=== PATIENT | female | born 1970 | race Caucasian/White ===

== ENCOUNTER 2020-07-08 12:33 | Emergency (ER) | payer OTHER ==
[~2020-07-08] VITALS: Ht 167.6 cm; Wt 86.2 kg
[2020-07-08 12:55] VITALS: BP 155/77
[2020-07-08] MEDS ORDERED: HYDROXYZINE HCL25 M2 PO (13:18)
[2020-07-08] MEDS ORDERED: CENTANY30 GM TOP (13:18)
[2020-07-08] MEDS ORDERED: PREDNISONE 10 M10 MG PO (13:18)
== END 2020-07-08 13:34 | disposition home or self-care (01) ==
LOC: M.ERS 12:33
DX: R21 Rash and other nonspecific skin eruption (principal)